=== PATIENT | female | born 1960 | race Caucasian/White ===

== ENCOUNTER → 2016-10-29 | Day surgery (SDC) | payer BC ==
[~2016-10-29] VITALS: Ht 170.2 cm; Wt 86.9 kg
[~2016-10-29] MED LIST: AMARYL4 M1 PO; AROMASIN25 MG PO; CALCIUM600 MG PO; DRISDOL 5050000 UNIT PO; GLUCOPHAGE500 MG PO; HYZAAR 50-12.51 TAB PO; INVOKANA300 MG PO; LOSARTAN-HCTZ1 EAC2 PO; NORCO 5-325 MG1 TAB PO; TAZTIA XT240 MG PO; TAZTIA XT360 MG PO; TENORMIN25 MG PO; VITAMIN D-32000 UNI1 PO; ZOCOR40 MG PO
== END | disposition disaster alternative care site (69) ==
LOC: GPOC 10-25 08:00 → GEND 07:24
PROC: 0DBK8ZX Excision of Ascending Colon, Via Natural or Artificial Opening Endoscopic, Diagnostic (ICD-10-PCS; principal; 2016-10-29)
PROC: 0DBM8ZX Excision of Descending Colon, Via Natural or Artificial Opening Endoscopic, Diagnostic (ICD-10-PCS; 2016-10-29)
DX: Z12.11 Encounter for screening for malignant neoplasm of colon (principal); D12.2 Benign neoplasm of ascending colon; D12.4 Benign neoplasm of descending colon; I10 Essential (primary) hypertension; E78.00 Pure hypercholesterolemia, unspecified; E11.9 Type 2 diabetes mellitus without complications; Z85.3 Personal history of malignant neoplasm of breast; Z88.1 Allergy status to other antibiotic agents; Z79.899 Other long term (current) drug therapy; Z98.890 Other specified postprocedural states
CPT/HCPCS: J2001; J7030